=== PATIENT | male | born 1995 | race American Indian/Alaskan Native ===

== ENCOUNTER 2018-06-04 08:24 | Emergency (ER) | payer SELFPAY ==
--- NOTE | 2018-06-04 09:04 | Emergency Department Report ---
ED Neck Pain/Injury HPI - General Chief Complaint: Neck Pain/Injury Stated Complaint: BODY TINGLING Time Seen by Provider: 06/04/18 08:59 Source: patient Mode of arrival: Ambulatory Limitations: No Limitations - History of Present Illness Initial Comments: 22-year-old male presents to ED with complaint of left neck pain since last night. Patient states he began doing bench press exercise with heavy dumbbells. Patient states after the last rep, he sat up from off the bench while holding the weights and felt as if he pulled something in his neck. Pt states he attempted to continue his workout by doing some pushups, but was unable to b/c of the neck pain. Pt states he iced his neck last night which relieved some of the pain. Pt states this morning after waking, he is having pain mostly on the left side now. States took tylenol prior to ED arrival which seemed to help. Denies weakness. Reports tingling to his "entire body." MD Complaint: neck pain -: Last night Place: other (gym) Radiation: left shoulder Severity: mild Quality: aching Consistency: intermittent Improves With: cold therapy, other (tylenol) Worsens With: movement of neck Context: lifting Associated Symptoms: tingling. denies: headache, fever, numbness, weakness, difficulty walking, nausea, vomiting Treatments Prior to Arrival: Acetaminophen, cold therapy - Related Data Previous Rx's Medication Instructions Recorded Last Taken Type Methocarbamol [Robaxin-750] 750 mg PO Q6HR PRN #20 tablet 06/04/18 Unknown Rx Naproxen [Naprosyn] 500 mg PO BID #20 tablet 06/04/18 Unknown Rx Allergies Allergy/AdvReac Type Severity Reaction Status Date / Time No Known Allergies Allergy Unverified 06/04/18 08:39 ED Review of Systems ROS: Stated complaint: BODY TINGLING Other details as noted in HPI Comment: All other systems reviewed and negative Constitutional: denies: chills, fever Respiratory: denies: cough Gastrointestinal: denies: nausea, vomiting Musculoskeletal: as per HPI Neurological: paresthesias. denies: headache, weakness ED Past Medical Hx - Past Medical History Previous Medical History?: No - Surgical History Past Surgical History?: No - Social History Smoking Status: Never Smoker - Medications Home Medications: Home Medications Medication Instructions Recorded Confirmed Last Taken Type Methocarbamol [Robaxin-750] 750 mg PO Q6HR PRN #20 tablet 06/04/18 Unknown Rx Naproxen [Naprosyn] 500 mg PO BID #20 tablet 06/04/18 Unknown Rx ED Physical Exam - General Limitations: No Limitations General appearance: alert, in no apparent distress, other (nontoxic appearing) - Head Head exam: Present: atraumatic, normocephalic - Eye Eye exam: Present: normal appearance, EOMI - ENT ENT exam: Present: mucous membranes moist - Neck Neck exam: Present: normal inspection, full ROM, other (tenderness to left paraspinal and left subscapular area) - Respiratory Respiratory exam: Present: normal lung sounds bilaterally. Absent: respiratory distress - Cardiovascular Cardiovascular Exam: Present: regular rate, normal rhythm - Extremities Exam Extremities exam: Present: normal inspection, full ROM - Back Exam Back exam: Present: full ROM - Neurological Exam Neurological exam: Present: alert, oriented X3, CN II-XII intact. Absent: motor sensory deficit - Psychiatric Psychiatric exam: Present: normal affect, normal mood - Skin Skin exam: Present: warm, dry, intact, normal color ED Course Vital Signs 06/04/18 06/04/18 08:32 09:35 Temperature 98.1 F 98.2 F Pulse Rate 92 H 92 H Respiratory 20 16 Rate Blood Pressure 142/75 Blood Pressure 140/82 [Left] O2 Sat by Pulse 98 98 Oximetry ED Medical Decision Making - Medical Decision Making 22-year-old male with cervical strain. Range of motion intact. No meningismus noted. No neuro deficits on exam. Will prescribe muscle relaxer and anti- inflammatory. Patient given return precautions. - Differential Diagnosis cervical strain Critical care attestation.: If time is entered above; I have spent that time in minutes in the direct care of this critically ill patient, excluding procedure time. ED Disposition Clinical Impression: Acute cervical myofascial strain Disposition: - TO HOME OR SELFCARE Is pt being admited?: No Condition: Stable Instructions: Muscle Strain (ED) Prescriptions: Methocarbamol [Robaxin-750] 750 mg PO Q6HR PRN #20 tablet PRN Reason: Spasms Naproxen [Naprosyn] 500 mg PO BID #20 tablet Referrals: PRIMARY CARE, [Referring] - 3-5 Days Time of Disposition: 09:04
[2018-06-04 09:39] VITALS: BP 140/82
== END 2018-06-04 09:35 | disposition home or self-care (01) ==
LOC: ED 08:24
DX: S16.1XXA Strain of muscle, fascia and tendon at neck level, initial encounter (principal); R20.2 Paresthesia of skin; X50.0XXA Overexertion from strenuous movement or load, initial encounter; Y93.89 Activity, other specified; Y92.39 Other specified sports and athletic area as the place of occurrence of the external cause; Y99.8 Other external cause status
CPT/HCPCS: 99282